=== PATIENT | female | born 1960 | race Caucasian/White ===

== ENCOUNTER → 2017-07-06 | Outpatient (CLI) | payer OTHER ==
--- NOTE | 2017-07-06 10:28 | RADIOLOGY REPORT PS360 ---
KNEE-4 OR 5 VIEWS-RT HISTORY: BILAT KNEE PAIN ORDERING PHYSICIAN: Javier Hester MD PATIENT AGE: 57 years COMPARISON: 08/02/2016 FINDINGS: Weightbearing views are performed. Moderate osteoarthritic changes are present involving the medial compartment and patellofemoral joint with decrease in joint space and osteophyte formation. Is not significantly changed. No fracture or dislocation. No lytic or blastic change. There are periarticular calcifications about the medial aspect of the knee with a calcific density along the proximal aspect of the medial femoral condyle which could be related to prior ligamentous injury IMPRESSION: Overall no change moderate osteoarthritis of the right knee as described above
--- NOTE | 2017-07-06 10:30 | RADIOLOGY REPORT PS360 ---
KNEE-4 OR 5 VIEWS-LT HISTORY: BILAT KNEE PAIN ORDERING PHYSICIAN: Javier Hester MD PATIENT AGE: 57 years COMPARISON: 08/02/2016 FINDINGS: Weightbearing views performed No fracture or dislocation. No lytic or blastic change. Normal mineralization. Mild to moderate osteoarthritic changes are once again noted involving all 3 compartments with osteophyte formation and decrease in the joint space medially and at the patellofemoral joint. There is mild lateral patellar subluxation. A small calcific density is once again noted along the medial compartment central aspect and may be related to a loose body. IMPRESSION: Overall no change in the [id number] osteoarthritis with possible loose body of the medial compartment
--- NOTE | 2017-07-06 10:30 | RADIOLOGY REPORT PS360 ---
KNEE-4 OR 5 VIEWS-LT HISTORY: BILAT KNEE PAIN ORDERING PHYSICIAN: Javier Hester MD PATIENT AGE: 57 years COMPARISON: 08/02/2016 FINDINGS: Weightbearing views performed No fracture or dislocation. No lytic or blastic change. Normal mineralization. Mild to moderate osteoarthritic changes are once again noted involving all 3 compartments with osteophyte formation and decrease in the joint space medially and at the patellofemoral joint. There is mild lateral patellar subluxation. A small calcific density is once again noted along the medial compartment central aspect and may be related to a loose body. IMPRESSION: Overall no change in the [id number] osteoarthritis with possible loose body of the medial compartment
== END ==
LOC: RAD 09:53
DX: M25.561 Pain in right knee (principal); M25.562 Pain in left knee

== ENCOUNTER → 2017-08-01 | Outpatient (CLI) | payer OTHER ==
[2017-08-01 08:58] LABS: HEMOGLOBIN 14.3 g/dL (12.2-16.2); LYMPH # 2.9 K/mm3 (0.7-4.5); LYMPH % 39.9 % (10-50.0)
[2017-08-01 12:10] LABS: BUN 18 mg/dL (7-18)
[2017-08-01 12:14] LABS: GFR (ESTIMATED) 65 ML/MIN (59-)
[2017-08-02 08:51] LABS: Vitamin D, 25-Hydroxy 39.2 ng/mL (30.0-100.0)
[2017-08-02 10:39] LABS: Folate (Folic Acid) >20.0 ng/mL (>3.0); Vitamin B12 956 pg/mL (232-1245)
== END ==
LOC: LAB 08:39
PROVIDERS: Family Medicine
DX: Z98.84 Bariatric surgery status (principal)

== ENCOUNTER → 2017-08-04 | Outpatient (CLI) | payer OTHER ==
--- NOTE | 2017-08-12 11:09 | RADIOLOGY REPORT PS360 ---
DIG MAMM-SCREEN NANCY W/CAD CAD Screening COMPARISON: Digital mammograms 08/02/2016 and 07/28/2015 INDICATION: There is no personal or family history of breast cancer TECHNIQUE: Standard CC and MLO images were obtained. R2 CAD reviewed. FINDINGS: Prominent diffuse scattered fibroglandular densities are seen throughout both breasts and the findings are bilateral and symmetrical. There are multiple scattered benign-appearing calcination is in each breast, there is a mole marker on each breast. There is a stable nodular density deep upper right breast. There is no suspicious lesion and no suspicious microcalcifications. IMPRESSION: Stable exam with no suspicious lesion seen recommend yearly follow-up BI-RADS CATEGORY: 2_Benign RECOMMENDED FOLLOWUP: 12M 12 MONTH FOLLOW-UP (A letter has been sent to the patient regarding results of the study.)
== END ==
LOC: RAD 08:29
DX: Z12.31 Encounter for screening mammogram for malignant neoplasm of breast (principal)
CPT/HCPCS: G0202